=== PATIENT | female | born 1950 | race Two or more races ===

== ENCOUNTER 2023-10-26 02:04 | Emergency (ER) | payer MEDICARE, OTHER ==
[~2023-10-26] VITALS: Ht 165.1 cm; Wt 75.0 kg
[2023-10-26 02:21] VITALS: TEMP 98.4
[2023-10-26 05:00] LABS: BASOPHILS % (AUTO) 0.7 % (0.0-2.0); EOSINOPHILS % (AUTO) 6.5 % (1.0-6.0); HEMATOCRIT 37.1 % (36-46); HEMOGLOBIN 12.2 g/dL (12.0-16.0); LYMPHOCYTES # (AUTO) 2.3 K/uL (1.0-4.8); LYMPHOCYTES % (AUTO) 47.4 % (22.0-44.0); MEAN CORPUSCULAR HEMOGLOBIN 30.8 pg (26.0-34.0); MEAN CORPUSCULAR HGB CONC 32.8 G/dL (31.0-37.0); MEAN CORPUSCULAR VOLUME 94 fL (80-100); MONOCYTES # (AUTO) 0.4 K/uL (0.1-1.0); MONOCYTES % (AUTO) 7.9 % (2.0-9.0); NEUTROPHILS # (AUTO) 1.8 K/uL (1.8-7.7); NEUTROPHILS % (AUTO) 37.5 % (40.0-70.0); PLATELET COUNT (AUTO) 164 K/uL (150-450); RED BLOOD CELL COUNT(AUTO) 3.95 MIL/uL (4.00-5.20); RED CELL DISTRIBUTION WIDTH 14.8 % (11.5-14.5); WHITE BLOOD COUNT (AUTO) 4.8 K/uL (4.5-11.0)
[2023-10-26 05:18] LABS: ANION GAP 11 mmol/L (8-16); CALCIUM, TOTAL 8.3 mg/dL (8.8-10.5); CARBON DIOXIDE 26 mmol/L (22-29); CHLORIDE 106 mmol/L (98-107); CREATININE 0.84 mg/dL (0.60-1.30); GLOMERULAR FILTR. RATE CALC > 60 mL/min (>60); GLUCOSE,RANDOM 92 mg/dL (70-110); POTASSIUM 3.8 mmol/L (3.5-5.1); SODIUM SERUM 143 mmol/L (136-145); UREA NITROGEN, BLOOD 12 mg/dL (7-18)
[2023-10-26 05:19] LABS: ALCOHOL, BLOOD (SERUM) 181 mg/dL (0-10)
[2023-10-26 07:20] VITALS: BP 118/64; PULSE 74; RESP 16
== END 2023-10-26 07:59 | disposition home or self-care (01) ==
LOC: EMS 02:04
DX: F10.129 Alcohol abuse with intoxication, unspecified (principal); F32.A Depression, unspecified; Y90.9 Presence of alcohol in blood, level not specified
CPT/HCPCS: 99285; 80048; 85025; 36415; G0480

== ENCOUNTER 2024-09-25 10:26 | Inpatient (IN) | payer OTHER ==
[~2024-09-25] VITALS: Ht 165.1 cm; Wt 68.9 kg
[2024-09-25] MEDS: LORazepam 2 MG/ML VIAL IM ONE (10:47)
[2024-09-25 10:51] LABS: PLATELET COUNT (AUTO) 188 K/uL (150-450); RED BLOOD CELL COUNT(AUTO) 4.49 MIL/uL (4.00-5.20); RED CELL DISTRIBUTION WIDTH 14.1 % (11.5-14.5); WHITE BLOOD COUNT (AUTO) 6.0 K/uL (4.5-11.0)
[2024-09-25 10:58] LABS: CALCIUM, TOTAL 9.1 mg/dL (8.8-10.5); CREATININE 0.82 mg/dL (0.60-1.30); GLOMERULAR FILTR. RATE CALC > 60 mL/min (>60); GLUCOSE,RANDOM 100 mg/dL (70-110); SODIUM SERUM 144 mmol/L (136-145); UREA NITROGEN, BLOOD 15 mg/dL (7-18)
[2024-09-25 11:26] LABS: COVID AG,FIA SOURCE NASAL SWAB
[2024-09-25 11:50] LABS: SARS-COV2 (COVID) ANTIGEN,FIA Negative (Negative)
[2024-09-25 12:06] LABS: APPEARANCE,URINE CLEAR (CLEAR); GLUCOSE, URINE (UA) NEGATIVE (NEGATIVE); LEUKOCYTE ESTERASE ,URINE LARGE (NEGATIVE); NITRATE,URINE NEGATIVE (NEGATIVE); OCCULT BLOOD,URINE NEGATIVE (NEGATIVE); PH,URINE DRUG SCREEN 5.5 (5.0-8.0); SPECIFIC GRAVITIY, URINE 1.005 (1.003-1.030)
[2024-09-25 12:18] LABS: ALCOHOL, URINE DRUG SCREEN POSITIVE (NEGATIVE); AMPHET/METH SCREEN,URINE NEGATIVE (NEGATIVE); BARBITURATE SCREEN, URINE NEGATIVE (NEGATIVE); CANNABINOID SCREEN,URINE NEGATIVE (NEGATIVE); COCAINE SCREEN,URINE NEGATIVE (NEGATIVE); METHADONE SCREEN, URINE NEGATIVE (NEGATIVE)
[2024-09-25 12:19] LABS: SQUAMOUS EPITHELIAL CELL,UR Few /LPF (None Seen)
[2024-09-25] MEDS ORDERED: MAG HYDROX/ALUMINUM HYD/SIMETH ES 30 ML SUSPENSION UDCUP PO PRN (16:15)
[2024-09-25] MEDS ORDERED: MAGNESIUM HYDROXIDE SUSPENSION 30 ML UDCUP PO PRN (16:15)
[2024-09-25] MEDS ORDERED: ZOLPIDEM TARTRATE 10 MG TABLET PO PRN (16:15)
[2024-09-25] MEDS ORDERED: TUBERCULIN, PURIFIED PROTEIN DERIVATIVE 5 TU/0.1 ML SYRINGE ID ONE (16:15)
[2024-09-25] MEDS ORDERED: GuaiFENesin/D-METHORPHAN [SUGAR-FREE] 200-20MG/10 ML SYRUP UDCUP PO PRN (16:15)
[2024-09-25] MEDS ORDERED: ACETAMINOPHEN 325 MG TABLET PO PRN (16:15)
[2024-09-25] MEDS ORDERED: PROMETHAZINE HCL 25 MG TABLET PO PRN (16:15)
[2024-09-25] MEDS ORDERED: MELATONIN 5 MG TABLET PO PRN (16:15)
[2024-09-25] MEDS ORDERED: LOPERAMIDE HCL 2 MG CAPSULE PO PRN (16:15)
[2024-09-25] MEDS: CEPHALEXIN MONOHYDRATE 500 MG CAPSULE PO ONE (20:05)
[2024-09-26] VITALS (12 sets, daily range): BP systolic 18–151; BP diastolic 55–82; PULSE 60–86; RESP 16–18; TEMP 96.4–97.5; O2SAT 95–99
[2024-09-26] MEDS: MIRTAZAPINE 15 MG TABLET PO SCH (02:30)
[2024-09-26] MEDS: THIAMINE 100 MG TABLET PO SCH (02:30)
[2024-09-26 07:29] LABS: CHOL/HDL RATIO 1.6 (3.9-5.7); LDL CHOL (CALC.) 45.0 mg/dL (0-130)
[2024-09-26] MEDS: MULTIVITAMINS WITH MINERALS, THERAPEUTIC TABLET PO SCH (10:38)
[2024-09-26] MEDS: FOLIC ACID 1 MG TABLET PO SCH (10:39)
[2024-09-26] MEDS: NALTREXONE HCL 50 MG TABLET PO SCH (10:48)
[2024-09-27 04:11] VITALS: BP 138/62; PULSE 57; RESP 16; TEMP 96.5; O2SAT 99
[2024-09-27 08:15] VITALS: BP 162/86; PULSE 66; RESP 17; TEMP 97.8; O2SAT 98
[2024-09-27 14:37] VITALS: BP 162/86; PULSE 66; RESP 17; TEMP 97.8; O2SAT 98
[2024-09-27] MEDS ORDERED: MIRT-89 PO (18:19)
[2024-09-27] MEDS ORDERED: MELA5TAB40 PO (18:19)
[2024-09-27] MEDS ORDERED: NALT50TA33 PO (18:19)
[2024-09-27 20:00] VITALS: BP 157/88; PULSE 64; RESP 16; TEMP 96.8; O2SAT 99
[2024-09-27 22:07] VITALS: BP 157/88; PULSE 64; RESP 16; TEMP 98.6; O2SAT 99
[2024-09-28 08:30] VITALS: BP 141/84; PULSE 69; RESP 19; TEMP 97.9; O2SAT 99
[2024-09-28 10:52] VITALS: BP 141/84; PULSE 69; RESP 18; TEMP 97.9; O2SAT 99
== END 2024-09-28 14:05 | disposition left against medical advice (07) | DRG 885 ==
LOC: EMS 11:13 → EDH 16:12 → 3EI 09-26 03:22
PROVIDERS: ADMIT Psychiatry & Neurology Psychiatry; ATTEND Psychiatry & Neurology Psychiatry
PROC: GZHZZZZ Group Psychotherapy (ICD-10-PCS; principal; 2024-09-26)
PROC: GZ51ZZZ Individual Psychotherapy, Behavioral (ICD-10-PCS; 2024-09-26)
PROC: GZ56ZZZ Individual Psychotherapy, Supportive (ICD-10-PCS; 2024-09-27)
DX: F33.2 Major depressive disorder, recurrent severe without psychotic features (principal); R45.851 Suicidal ideations; F10.229 Alcohol dependence with intoxication, unspecified; Z20.822 Contact with and (suspected) exposure to COVID-19; Z53.21 Procedure and treatment not carried out due to patient leaving prior to being seen by health care provider; F17.210 Nicotine dependence, cigarettes, uncomplicated
CPT/HCPCS: 80048; 80061; 80307; 81001; 83036; 84439; 84443; 85025; 86592; 87077; 87086; 87186; 99291; G0378; G0480; J1200; J1630; J2060